=== PATIENT | male | born 1935 | race Caucasian/White ===

== ENCOUNTER → 2016-07-27 | Outpatient (CLI) | payer MEDICARE, BC | LOC: MW.CHPS 08:00 | PROVIDERS: ATTEND Plastic Surgery | DX: C00.1 Malignant neoplasm of external lower lip (principal); B00.1 Herpesviral vesicular dermatitis; L57.0 Actinic keratosis | CPT/HCPCS: G0463 ==

== ENCOUNTER → 2016-08-07 | Outpatient (CLI) | payer MEDICARE, BC | LOC: MW.CHPS 08:00 | PROVIDERS: ATTEND Plastic Surgery | DX: L57.0 Actinic keratosis (principal); B00.1 Herpesviral vesicular dermatitis | CPT/HCPCS: G0463 ==

== ENCOUNTER → 2016-08-29 | Outpatient (CLI) | payer MEDICARE, BC | LOC: MW.CHPS 08:00 | PROVIDERS: ATTEND Plastic Surgery | DX: L57.0 Actinic keratosis (principal); B00.1 Herpesviral vesicular dermatitis | CPT/HCPCS: G0463 ==

== ENCOUNTER 2021-04-22 16:18 | Emergency (ER) | payer MEDICARE, BC ==
--- NOTE | 2021-04-22 16:46 | EDM.PDOC ---
ED HPI GENERAL MEDICAL PROBLEM - General Chief Complaint: Respiratory Problem Stated Complaint: SHORT OF BREATH, LOW PULSE LOLI [place] REFERRAL Time Seen by Provider: 04/22/21 16:26 Source of Information: Reports: Patient History Limitations: Reports: No Limitations - History of Present Illness INITIAL COMMENTS - FREE TEXT/NARRATIVE: Patient is a 86-year-old male who was sent over from the clinic as he has left lower extremity swelling and a fast heart rate. He also had oxygen saturation 90% at the clinic he Recedo 100% on room air and looks well. He himself denies any shortness of breath. States that his leg is swelled up not sure why denies any long plane rides boat rides or car rides. Denies any direct injuries or blows to the leg. - Related Data Allergies Allergy/AdvReac Type Severity Reaction Status Date / Time No Known Allergies Allergy Verified 04/22/21 16:23 Home Meds: Home Meds Apixaban [Eliquis] 5 mg PO BID 30 Days #74 tablet 04/22/21 [Rx] Fluticasone Furoate [Flonase Sensimist] 1 dose PO ASDIRECTED 04/22/21 [History] Furosemide [Lasix] 1 dose PO ASDIRECTED 04/22/21 [History] Tiotropium [Spiriva HandiHaler] 1 dose INH ASDIRECTED 04/22/21 [History] Past Medical History HEENT History: Reports: Hard of Hearing, Macular Degeneration Other HEENT History: wears glasses, hearing aide in right ear Cardiovascular History: Reports: None Respiratory History: Reports: None Gastrointestinal History: Reports: Colon Polyp Genitourinary History: Reports: None Musculoskeletal History: Reports: None Neurological History: Reports: None Psychiatric History: Reports: None Endocrine/Metabolic History: Reports: None Hematologic History: Reports: Blood Transfusion(s) Other Hematologic History: as a child Immunologic History: Reports: None Oncologic (Cancer) History: Reports: Basal Cell Carcinoma, Other (See Below) Other Oncologic History: skin CA removed from lip Dermatologic History: Reports: Other (See Below) Other Dermatologic History: extremely dry skin, hx of shingles - Infectious Disease History Infectious Disease History: Reports: Chicken Pox - Past Surgical History Head Surgeries/Procedures: Reports: None HEENT Surgical History: Reports: Tonsillectomy Cardiovascular Surgical History: Reports: None Respiratory Surgical History: Reports: None GI Surgical History: Reports: Appendectomy, Colonoscopy, Hernia, Inguinal Male Surgical History: Reports: None Endocrine Surgical History: Reports: None Neurological Surgical History: Reports: None Musculoskeletal Surgical History: Reports: None Oncologic Surgical History: Reports: None Dermatological Surgical History: Reports: None Social & Family History - Family History Family Medical History: No Pertinent Family History - Tobacco Use Tobacco Use Status *Q: Never Tobacco User - Caffeine Use Caffeine Use: Reports: Soda - Recreational Drug Use Recreational Drug Use: No ED ROS GENERAL - Review of Systems Review Of Systems: See Below Constitutional: Reports: No Symptoms HEENT: Reports: No Symptoms Respiratory: Reports: No Symptoms Cardiovascular: Reports: No Symptoms Endocrine: Reports: No Symptoms GI/Abdominal: Reports: No Symptoms : Reports: No Symptoms Musculoskeletal: Reports: No Symptoms Skin: Reports: No Symptoms Neurological: Reports: No Symptoms Psychiatric: Reports: No Symptoms Hematologic/Lymphatic: Reports: No Symptoms Immunologic: Reports: No Symptoms ED EXAM, GENERAL - Physical Exam Exam: See Below Exam Limited By: No Limitations General Appearance: Alert, WD/WN, No Apparent Distress Eye Exam: Bilateral Eye: EOMI, PERRL Ears: Normal External Exam, Normal TMs Nose: Normal Inspection Throat/Mouth: Normal Inspection Head: Atraumatic Respiratory/Chest: No Respiratory Distress, Lungs Clear, Normal Breath Sounds Cardiovascular: Normal Peripheral Pulses, Regular Rate, Rhythm GI/Abdominal: Normal Bowel Sounds, Soft Extremities: Normal Inspection, Normal Range of Motion, Non-Tender, Pedal Edema Neurological: Alert, Oriented, Normal Cognition, Normal Gait #1 Interpretation EKG Date: 04/22/21 Time: 17:08 Rhythm: Other (sinus tach) Rate (Beats/Min): 103 ST-T: Normal Course - Vital Signs Last Recorded V/S: Last Vital Signs Temp 100 F 04/22/21 18:54 Pulse 91 04/22/21 18:54 Resp 18 04/22/21 18:54 BP 101/50 L 04/22/21 18:54 Pulse Ox 95 04/22/21 18:54 - Orders/Labs/Meds Orders: Active Orders 24 hr Category Date Time Status Patient Status [ADT] Routine ADT 04/22/21 19:45 Active Labs: Laboratory Tests 04/22/21 04/22/21 Range/Units 16:50 16:50 WBC 8.53 (4.0-11.0) K/uL RBC 3.96 L (4.50-5.90) M/uL Hgb 12.3 L (13.0-17.0) g/dL Hct 36.7 L (38.0-50.0) % MCV 92.7 (80.0-98.0) fL MCH 31.1 (27.0-32.0) pg MCHC 33.5 (31.0-37.0) g/dL RDW Std Deviation 49.2 (28.0-62.0) fl RDW Coeff of Deborah 14 (11.0-15.0) % Plt Count 141 L (150-400) K/uL MPV 9.40 (7.40-12.00) fL Neut % (Auto) 73.2 (48.0-80.0) % Lymph % (Auto) 9.0 L (16.0-40.0) % [place] % (Auto) 14.5 (0.0-15.0) % Eos % (Auto) 0.8 (0.0-7.0) % Baso % (Auto) 2.5 H (0.0-1.5) % Neut # (Auto) 6.2 H (1.4-5.7) K/uL Lymph # (Auto) 0.8 (0.6-2.4) K/uL [place] # (Auto) 1.2 H (0.0-0.8) K/uL Eos # (Auto) 0.1 (0.0-0.7) K/uL Baso # (Auto) 0.2 H (0.0-0.1) K/uL Nucleated RBC % 0.0 /100WBC Nucleated RBCs # 0 K/uL Sodium 138 (136-148) mmol/L Potassium 4.5 (3.5-5.1) mmol/L Chloride 102 (98-107) mmol/L Carbon Dioxide 24.5 (21.0-32.0) mmol/L BUN 59 H (7.0-18.0) mg/dL Creatinine 2.5 H (0.8-1.3) mg/dL Est Cr Clr Drug Dosing 19.76 mL/min Estimated GFR (MDRD) 24.7 ml/min Glucose 108 H (74-106) mg/dL Calcium 8.9 (8.5-10.1) mg/dL Total Bilirubin 0.9 (0.2-1.0) mg/dL AST 36 (15-37) IU/L ALT 21 (14-63) IU/L Alkaline Phosphatase 159 H (46-116) U/L Troponin I < 0.050 (0.000-0.056) ng/mL Total Protein 8.1 (6.4-8.2) g/dL Albumin 3.9 (3.4-5.0) g/dL Globulin 4.2 H (2.6-4.0) g/dL Albumin/Globulin Ratio 0.9 (0.9-1.6) Meds: Medications Discontinued Medications Generic Name Dose Route Start Last Admin Trade Name Freq PRN Reason Stop Dose Admin Enoxaparin Sodium 65 mg 04/22/21 19:43 04/22/21 19:52 Enoxaparin 100 Mg/1 Ml Syringe 1 mg/kg (65 mg) 04/22/21 19:44 65 mg SUBCUT Administration NOW STA - Re-Assessments/Exams Free Text/Narrative Re-Assessment/Exam: 04/22/21 19:44 Patient has an extensive DVT to his lower extremity. We cannot do a CT PE due to his creatinine and GFR. We spoke to IR at [facility] and he states that he is not a candidate for touch directed thrombolytics due to him being over 82 and increased chance of bleed. He will be admitted and started on Lovenox in ER. 04/22/21 20:03 Patient does not want to stay I spoke to patient I have admitted the patient had hospitalist come down to speak to the patient he still refusing patient will be AMA but we will start patient on Eliquis. The patient is clinically not intoxicated, free from distracting pain, appears to have intact insight, judgment and reason and in my medical opinion has the capacity to make decisions. The patient is also not under any duress to leave the hospital. In this scenario, it would be battery to subject a patient to treatment against his/her will. I have voiced my concerns for the patient's health given that a full evaluation and treatment had not occurred. I have discussed the need for continued evaluation to determine if their symptoms are caused by a condition that present risk of or morbidity. Risks including but not limited to , permanent disability, prolonged hospitalization, prolonged illness, were discussed. I tried offering alternative options in hopes that the patient might be amenable to partial evaluation and treatment which would be medically beneficial to the patient, though the patient declined my options and insisted on leaving. Because I have been unable to convince the patient to stay, I answered all of their questions about their condition and asked them to return to the ED as soon as possible to complete their evaluation, especially if their symptoms worsen or do not improve. I emphasized that leaving against medical advice does not preclude returning here for further evaluation. I asked the patient to return if they change their mind about the further evaluation and treatment. I strongly encouraged the patient to return to this Emergency Department or any Emergency Department at any time, particularly with worsening symptoms. Departure - Departure Time of Disposition: 19:44 Disposition: Against Medical Advice 07 Condition: Good Clinical Impression: DVT (deep venous thrombosis) - Discharge Information *PRESCRIPTION DRUG MONITORING PROGRAM REVIEWED*: Not Applicable *COPY OF PRESCRIPTION DRUG MONITORING REPORT IN PATIENT SE: Not Applicable Instructions: Deep Vein Thrombosis Referrals: Markos Campbell MD [Primary Care Provider] - Forms: ED Department Discharge Additional Instructions: You are seen today for leg swelling you are found to have a clot in your leg we were also concerned about a clot being in your lungs we cannot do a CT scan due to your kidney function not being good. We also would have like kept in hospital but she do not want to stay so you have signed out AGAINST MEDICAL ADVICE. We will start you on a blood thinner and we want you to please follow- up with your primary care physician as soon as possible. If you have any other concerning signs symptom please return to the ED. Sepsis Event Note (ED) - Evaluation Sepsis Screening Result: No Definite Risk - Focused Exam Vital Signs: Vital Signs Temp Temp Pulse Resp BP Pulse Ox 04/22/21 18:54 100 F 91 18 101/50 L 95 04/22/21 18:27 99.7 F 93 18 119/57 L 97 04/22/21 18:08 91 19 110/56 L 97 04/22/21 17:55 90 18 109/55 L 97 04/22/21 17:40 99.4 F 18 111/54 L 97 04/22/21 17:25 18 106/64 100 04/22/21 17:10 18 109/64 99 04/22/21 17:00 100.4 F 106 H 18 114/58 L 100 04/22/21 16:32 106 H 100 04/22/21 16:24 98 F 17 145/79 H - My Orders Last 24 Hours: My Active Orders 04/22/21 19:45 Patient Status [ADT] Routine - Assessment/Plan Last 24 Hours: My Active Orders 04/22/21 19:45 Patient Status [ADT] Routine Plan: Patient is a 86-year-old male presents today for left lower extremity swelling. Patient also was hypoxic at the clinic and tachycardic asymptomatic here to be evaluated. Rule out DVT obtain EKG and reassess.
[2021-04-22 17:33] LABS: BLOOD UREA NITROGEN,BUN 59 mg/dL (7.0-18.0); CARBON DIOXIDE,CO2 24.5 mmol/L (21.0-32.0); CHLORIDE,CL 102 mmol/L (98-107); GLUCOSE RANDOM 108 mg/dL (74-106); POTASSIUM,K 4.5 mmol/L (3.5-5.1); SODIUM,NA 138 mmol/L (136-148)
--- NOTE | 2021-04-22 18:32 | US ---
INDICATION: Left leg swelling. TECHNIQUE: Ultrasound venous duplex lower left extremity. Compression venous exam was performed using esquivel-scale, color Doppler, and spectral Doppler analysis. COMPARISON: None. FINDINGS: Occlusive noncompressible thrombus throughout the left lower extremity deep veins, involving the left common femoral, superficial femoral, popliteal, and calf veins. The left greater saphenous vein at the saphenofemoral junction appears patent. IMPRESSION: Extensive occlusive noncompressible thrombus throughout the left lower extremity deep veins. Case discussed with Dr. Stevenson at 18:30 on 04/22/2021. Dictated by Branden Villanueva MD @ 04/22/2021 6:30:51 PM (Electronically Signed)
[2021-04-22] MEDS ORDERED: Enoxaparin 100 MG/1 ML Syringe SUBCUT STA (19:43)
[2021-04-22 20:13] VITALS: BP 113/60; PULSE 96
== END 2021-04-22 20:30 | disposition left against medical advice (07) ==
LOC: MW.ED 16:18
DX: I82.432 Acute embolism and thrombosis of left popliteal vein (principal); I82.412 Acute embolism and thrombosis of left femoral vein; Z79.01 Long term (current) use of anticoagulants; Z79.899 Other long term (current) drug therapy
CPT/HCPCS: 36415; 80053; 84484; 85025; 93005; 93971; 96372; 99285; J1650

== ENCOUNTER 2021-07-12 14:44 | Emergency (ER) | payer MEDICARE, BC ==
[2021-07-12 15:46] LABS: CARBON DIOXIDE,CO2 27.2 mmol/L (21.0-32.0); POTASSIUM,K 4.6 mmol/L (3.5-5.1)
[2021-07-12] MEDS: Lidocaine 1% 5 ML VIAL ONE (16:30)
[2021-07-12 18:49] VITALS: BP 109/60; PULSE 87
== END 2021-07-12 18:51 | disposition home or self-care (01) ==
LOC: MW.ED 14:44
DX: J90 Pleural effusion, not elsewhere classified (principal); Z79.01 Long term (current) use of anticoagulants
CPT/HCPCS: 32554; 36415; 71045; 71045-26; 71250; 71250-26; 74176; 74176-26; 80053; 82550; 85025; 85610; 85730; 93005; 99285-25

== ENCOUNTER 2021-07-30 17:09 | Emergency (ER) | payer MEDICARE, BC ==
[2021-07-30] MEDS ORDERED: Sodium Chloride 0.9% 10 ML Syringe FLUSH PRN (18:01)
[2021-07-30] MEDS ORDERED: Sodium Chloride 0.9% 2.5 ML Syringe FLUSH PRN (18:01)
[2021-07-30 18:38] LABS: BLOOD UREA NITROGEN,BUN 48 mg/dL (7.0-18.0); CARBON DIOXIDE,CO2 26.7 mmol/L (21.0-32.0); CHLORIDE,CL 107 mmol/L (98-107); GLUCOSE RANDOM 113 mg/dL (74-106); POTASSIUM,K 4.9 mmol/L (3.5-5.1); SODIUM,NA 143 mmol/L (136-148)
[2021-07-30] MEDS ORDERED: Iopamidol 755 MG/ML 500 ML Multipack Bottle IVPUSH ONE (19:06)
[2021-07-30 19:30] VITALS: PULSE 87
[2021-07-30 23:01] VITALS: BP 123/87
== END 2021-07-30 23:01 | disposition home or self-care (01) ==
LOC: MW.ED 17:09
DX: J90 Pleural effusion, not elsewhere classified (principal); C78.02 Secondary malignant neoplasm of left lung; C78.01 Secondary malignant neoplasm of right lung; Z90.49 Acquired absence of other specified parts of digestive tract; Z90.09 Acquired absence of other part of head and neck; Z79.01 Long term (current) use of anticoagulants; Z79.899 Other long term (current) drug therapy
CPT/HCPCS: 36415; 71045; 71045-26; 71250; 71250-26; 80053; 83880; 84484; 85025; 93005; 93010; 99285; 99285-25

== ENCOUNTER 2021-08-01 10:43 | Emergency (ER) | payer MEDICARE, BC ==
[2021-08-01] MEDS ORDERED: Morphine 4 MG/ML VIAL IVPUSH ONE (11:54)
[2021-08-01 13:41] LABS: BLOOD UREA NITROGEN,BUN 46 mg/dL (7.0-18.0); CARBON DIOXIDE,CO2 27.9 mmol/L (21.0-32.0); CHLORIDE,CL 107 mmol/L (98-107); GLUCOSE RANDOM 77 mg/dL (74-106); POTASSIUM,K 4.7 mmol/L (3.5-5.1); SODIUM,NA 143 mmol/L (136-148)
[2021-08-01 15:47] VITALS: BP 104/57; PULSE 68
== END 2021-08-01 15:30 | disposition home or self-care (01) ==
LOC: MW.ED 10:43
DX: J90 Pleural effusion, not elsewhere classified (principal)
CPT/HCPCS: 36415; 71045; 80053; 83605; 83615; 84157; 84484; 85025; 85730; 87040; 87070; 87075; 87205; 89050; 93005; 96374; 99285; J2270

== ENCOUNTER 2021-10-23 15:13 | Emergency (ER) | payer MEDICARE, BC ==
[2021-10-23] MEDS ORDERED: Sodium Chloride 0.9% 1,000 ML IV ONE (15:18)
[2021-10-23] MEDS ORDERED: Diltiazem 50 MG/10 ML SDV IVPUSH ONE (15:19)
[2021-10-23] MEDS ORDERED: Diltiazem 100 MG in Sodium Chloride 0.9% 100 ML IV SCH (15:30)
[2021-10-23 16:23] LABS: CARBON DIOXIDE,CO2 22.5 mmol/L (21.0-32.0); POTASSIUM,K 4.8 mmol/L (3.5-5.1)
[2021-10-23 16:24] LABS: ESTIMATED GFR 33.9 ml/min
[2021-10-23] MEDS ORDERED: Lidocaine 1% 5 ML VIAL ONE (16:45)
[2021-10-23] MEDS ORDERED: Lidocaine 1% with EPINEPHrine 1:100,000 10 ML MDV INJECT ONE (18:06)
[2021-10-23] MEDS ORDERED: Lidocaine 1% 5 ML VIAL INJECT ONE (18:12)
[2021-10-23 19:33] VITALS: BP 95/53; PULSE 79
== END 2021-10-23 19:00 ==
LOC: MW.ED 15:13
DX: J93.9 Pneumothorax, unspecified (principal); J90 Pleural effusion, not elsewhere classified; Z79.01 Long term (current) use of anticoagulants; Z20.822 Contact with and (suspected) exposure to COVID-19
CPT/HCPCS: 32551; 36415; 71045; 80053; 82803; 83605; 83735; 83880; 84484; 85025; 85610; 85730; 93005; 96365; 96366; 99285; J3490; J7030; U0002; 93010; 99291